=== PATIENT | male | born 1995 | race Caucasian/White ===

== ENCOUNTER → 2022-05-18 13:18 | Outpatient (CLI) | payer OTHER, SELFPAY ==
[2022-05-18 20:55] LABS: HIV 1 & 2 Ab/Ag 4th Gen Combo NEGATIVE (NEGATIVE)
[2022-05-20 03:23] LABS: RPR Screen Non Reactive (Non Reactive)
== END ==
PROVIDERS: PCP Physician Assistant; Visit Provider Physician Assistant
DX: Z11.3 Encounter for screening for infections with a predominantly sexual mode of transmission (principal)
CPT/HCPCS: 86592; 87389

== ENCOUNTER → 2023-02-22 13:51 | Outpatient (CLI) | payer OTHER, SELFPAY | PROVIDERS: PCP Physician Assistant; Referring Provider Family Medicine; Visit Provider Family Medicine | DX: Z23 Encounter for immunization (principal) | CPT/HCPCS: 90471; 90686 ==

== ENCOUNTER → 2023-07-19 14:04 | Outpatient (CLI) | payer OTHER, SELFPAY ==
[2023-07-19 20:55] LABS: HIV 1 & 2 Ab/Ag 4th Gen Combo NEGATIVE (NEGATIVE)
[2023-07-19 22:23] LABS: Urine N gonorrhoeae NOT DETECTED
[2023-07-19 22:24] LABS: Urine Chlamydia NOT DETECTED
== END ==
PROVIDERS: PCP Physician Assistant; Visit Provider Family Medicine
DX: Z20.2 Contact with and (suspected) exposure to infections with a predominantly sexual mode of transmission (principal)
CPT/HCPCS: 86592; 87081; 87389; 87491; 87591

== ENCOUNTER → 2023-07-20 09:04 | Outpatient (CLI) | payer OTHER, SELFPAY | PROVIDERS: PCP Physician Assistant; Visit Provider Family Medicine | DX: Z20.2 Contact with and (suspected) exposure to infections with a predominantly sexual mode of transmission (principal) | CPT/HCPCS: 87491; 87591 ==

== ENCOUNTER → 2024-08-05 12:27 | Outpatient (CLI) | payer OTHER, SELFPAY ==
[2024-08-08 14:36] LABS: QuantiFERON Mitogen Value >10.00 IU/mL (.); QuantiFERON Nil Value 0.26 IU/mL (.); QuantiFERON TB Gold Plus Negative (Negative); QuantiFERON TB2 Ag Value 0.17 IU/mL (.)
== END ==
PROVIDERS: PCP Physician Assistant; Visit Provider Family Medicine
DX: Z01.84 Encounter for antibody response examination (principal)
CPT/HCPCS: 86317; 86480